=== PATIENT | female | born 1990 | race Caucasian/White ===

== ENCOUNTER 2016-11-01 00:58 | Emergency (ER) | payer OTHER ==
--- NOTE | 2016-11-01 05:18 | ED ORDER SUMMARY ---
..... Patient: CICI ROCHE OrderSheet [facility] VisitID: [id number] [place] [address] 26y, F Registration Date/Time: 11/01/2016 ORDER SHEET Weight: 63.5 kg (stated) Allergies: Sulfa Antibiotics GENERAL ORDERS: CBC w Diff Urgent (02:00 11/01/2016 Dior GUNN) (2:08 TLewis R.N.) CMP Urgent (02:11/01/2016 Dior GUNN) (2:08 TLewis R.N.) UA-Culture if indicated Urgent (02:11/01/2016 Dior GUNN) (2:08 TLewis R.N.) Lipase Urgent (02:11/01/2016 Dior GUNN) (2:08 TLewis R.N.) Urine Urgent (02:11/01/2016 Dior GUNN) (2:08 TLewis R.N.) US Abdomen Limited (Yes) Urgent (03:11/01/2016 Dior GUNN) (Ack 3:31 CHagerty ER Rocket Scientist) (5:10 CHagerty ER Rocket Scientist) MEDICATION ORDERS: IV FLUIDS: Dilaudid IV 0.5 mg (HIGH ALERT MEDICATION, NOW) (02:00 11/01/2016 Dior GUNN) (2:15 DBeyer R.N.) Toradol IV 30 mg (NOW) (02:11/01/2016 Dior GUNN) (2:15 DBeyer R.N.) IV NS : initial bolus 1000 mL (1000 mL/hr), then none - (NOW) (02:11/01/2016 Dior GUNN) (2:28 DBeyer R.N.) Zofran IV 8 mg (NOW) (02:11/01/2016 Dior GUNN) (2:13 DBeyer R.N.) Dilaudid IV 1 mg (HIGH ALERT MEDICATION, NOW) (03:21 11/01/2016 Dior GUNN) (3:30 TLewis R.N.) ORDER SHEET NOTES: [Electronically signed by Dom Guevara R.N. (05:29 11/01/2016)] [Electronically signed by Lindsey Chun MD (15:04 11/06/2016)] [Electronically locked/signed by Dom Guevara R.N. (05:29 11/01/2016)]
--- NOTE | 2016-11-01 05:18 | ED CLINICAL REPORT ---
Clinical Report - Physicians/Mid Levels [facility] [address] [place] [address] 11/01/2016 1:00 Patient: CICI ROCHE Time Seen: 01:46. Arrived- By private vehicle. Historian- patient. HISTORY OF PRESENT ILLNESS Chief Complaint: ABDOMINAL PAIN. At its maximum, severity described as moderate. When seen in the E.D., severity described as moderate. Modifying factors- worsened by deep breaths. Not relieved by anything. It is described as "pain" and burning and it is described as located in the upper abdomen and in the left upper quadrant and radiating to the chest. This started about 2 weeks ago and is still present and now worse. The patient has had nausea. No loss of appetite, vomiting or diarrhea. Similar symptoms previously: None. Recent medical care: Not recently seen/assessed. REVIEW OF SYSTEMS No constipation, black stools, hematemesis, difficulty with urination or pain with urination. No urinary frequency, bloody stools, fever, headache or sore throat. No blurred vision, chest pain, difficulty breathing, cough or joint pain. No skin rash, chills or back pain. Denies current . All systems otherwise negative, except as recorded above. PAST HISTORY Problems: Dysrhythmia. Depression. Additional Surgeries: Cardiac ablation. Medications: Strattera Oral. Zoloft Oral. Allergies: Sulfa Antibiotics. SOCIAL HISTORY Smoker- current status unknown. Alcohol use. No drug use. ADDITIONAL NOTES The nursing notes have been reviewed. PHYSICAL EXAM Vital Signs: 11/01/2016 01:07 BP: 111/67. HR: 85. RR: 12. O2 saturation: 100%. Temp: 97.6 F. Have been reviewed. Appearance: Alert. Oriented X3. No acute distress. (PT appears moderately uncomfortable.). Eyes: Pupils equal, round and reactive to light. Eyes normal inspection. ENT: Nose normal. Neck: Normal inspection. CVS: Normal heart rate and rhythm. Heart sounds normal. Pulses normal. Respiratory: No respiratory distress. Breath sounds normal. Abdomen: Soft. Moderate tenderness in the upper abdomen. No guarding or rebound tenderness. Back: Normal inspection. No CVA tenderness. Skin: Skin warm and dry. Normal skin color. No rash. Normal skin turgor. Extremities: Extremities exhibit normal ROM. No lower extremity edema. Neuro: Oriented X 3. No motor deficit. No sensory deficit. LABS, X-RAYS, AND EKG Abdominal Sonogram: Normal study. The gallbladder is normal. Common duct is normal. Normal liver. Pancreas normal. No free fluid. Study included the gallbladder and upper abdomen. Prior studies were not available for comparison. The study was interpreted by the radiologist and discussed with the radiologist. Laboratory Tests: UA-Culture if indicated: (ANABELL: 11/01/2016 01:22) ( [facility] 11/01/2016 02:11) Final results Test Result Flag Units (Reference) URINE COLOR YELLOW URINE APPEARANCE CLEAR URINE GLUCOSE NEGATIVE (NEGATIVE) URINE BILIRUBIN NEGATIVE (NEGATIVE) URINE KETONE NEGATIVE (NEGATIVE) URINE SPECIFIC GRAVITY 1.015 (1.010-1.030) URINE PH 6.0 (5.0-8.0) URINE PROTEIN NEGATIVE (NEGATIVE) URINE UROBILINOGEN 0.2 EU/dL (0.2-1.0) URINE NITRITE NEGATIVE (NEGATIVE) URINE BLOOD TRACE-INTACT (NEGATIVE) URINE LEUK ESTERASE NEGATIVE (NEGATIVE) URINE RBC 0-1 rbc/hpf (0-1) URINE WBC 0-1 wbc/hpf (0-1) URINE EPITHELIAL CELLS 0-1 EPI/hpf (0-5) URINE BACTERIA NONE SEEN (NONE SEEN) URINE COMMENT CULT NOT INDICATED URINE CULTURES ARE SET-UP BASED ON THE FOLLOWING CRITERIA:POSITIVE NITRITEPOSITIVE LEUKOCYTE ESTERASEGREATER THAN 10 WHITE BLOOD CELLSMODERATE (2+) OR GREATER BACTERIA Urine: (ANABELL: 11/01/2016 01:22) ( [facility] [place] 11/01/2016 02:09) Final results Test Result Flag Units (Reference) URINE NEGATIVE CBC w Diff: (ANABELL: 11/01/2016 01:22) ( [facility] 11/01/2016 02:08) Final results Test Result Flag Units (Reference) WHITE BLOOD COUNT 11.8 H K/uL (4.5-11.5) RED BLOOD COUNT 4.85 M/uL (4.00-5.20) HEMOGLOBIN 15.4 gm/dL (12.0-16.0) HEMATOCRIT 45.3 % (36.0-46.0) MEAN CELL VOLUME 94 fL (80-100) MEAN CORPUSCULAR HGB 32 pg (26-34) MEAN CORPUSCULAR HGB CONC 34 g/dL (31-37) RED CELL DISTRIBUTION WIDTH 12.9 % (11.6-14.8) PLATELET COUNT 222 K/uL (150-400) NEUTROPHIL % 61.1 % (50-75) LYMPH % 29.4 % (25-40) MONO % 7.2 % (3-14) EOSINOPHIL % 2.1 % (0-4) BASOPHIL % 0.2 % (0-2) CMP: (ANABELL: 11/01/2016 01:22) ( [facility] 11/01/2016 02:16) Final results Test Result Flag Units (Reference) GLUCOSE 91 mg/dL (70-110) BUN 17 mg/dL (7-18) CREATININE 0.8 mg/dL (0.6-1.3) Estimated GFR >60 mL/min Estimated GFR- >60 mL/min Note: Persistent reduction over 3 months in eGFR<60 mL/min/1.73 m2 defines CKD. Patients with eGFR values>=60 mL/min/1.73 m2 may also have CKD if evidence ofpersistent proteinuria. Additional information may be foundat www.kidney.org. SODIUM 140 mmol/L (136-145) POTASSIUM 3.9 mmol/L (3.5-5.1) CHLORIDE 103 mmol/L (98-107) CARBON DIOXIDE 33 H mmol/L (21-32) CALCIUM 8.6 mg/dL (8.5-10.1) TOTAL PROTEIN 7.2 g/dL (6.4-8.2) ALBUMIN 4.2 g/dL (3.3-5.0) BILIRUBIN, TOTAL 0.4 mg/dL (0.0-1.0) ALKALINE PHOSPHATASE 59 U/L (46-116) AST (SGOT) 29 U/L (15-37) ALT (SGPT) 36 U/L (12-78) LIPASE 132 U/L (73-393) . Pulse Oximetry: 11/01/2016 01:07 O2 saturation: 100%. (FIO2 - room air). Interpretation: normal. PROGRESS AND PROCEDURES Course of Care: Pt was given IV fluids, Toradol, Dilaudid, and Zofran for symptomatic relief. She was worked up for her pain with labs and an US, and all were unremarkable. I have d/w pt that if her sx don't reynaldo, she may need an endoscopy. At this time, no emergent condition has been identifed. Patient counseled in person regarding the patient's stable condition, test results, diagnosis and need for follow-up. Concerns were addressed. Old medical records reviewed. Disposition: Discharged. Condition: stable and improved. CLINICAL IMPRESSION Acute left upper quadrant abdominal pain of unknown cause. Gastroesophageal reflux disease. INSTRUCTIONS Drink plenty of fluids. (Your labs look good, and your ultrasound shows no gallstones. You most likely either have a virus, or your stomach lining is irritated or even ulcerated.). Warnings: GENERAL WARNINGS: Return or contact your physician immediately if your condition worsens or changes unexpectedly, if not improving as expected, or if other problems arise. Your Current Medications: CONTINUE TAKING THE FOLLOWING MEDICATIONS: Strattera Oral. Zoloft Oral. Prescription Medications: Hydrocodone/APAP 5mg / 325mg: take 1-2 orally every 6 hours as needed for pain. Dispense twelve (12). No refill. Prilosec 20 mg capsules: take 1 capsule orally every day. Dispense thirty (30). No refill. Substitution is permissible. Follow-up: Follow up with your doctor. Call for the next available appointment. Reason for referral: Follow up ER visit for abdominal pain, discuss endoscopy. Understanding of the discharge instructions verbalized by patient. (Electronically signed by Lindsey Chun MD 11/06/2016 15:04)
--- NOTE | 2016-11-01 05:18 | ED NURSING NOTES ---
Clinical Report - Nurses [facility] [address] [place] [address] 11/01/2016 1:00 Patient: CICI ROCHE TRIAGE Triage time 01:10. Acuity: LEVEL 3. Chief Complaint: ABDOMINAL PAIN and NAUSEA. --01:18 Dom Guevara R.N. 01:07 11/01/16. BP: 111/67. HR: 85. RR: 12. O2 saturation: 100%. Temp: 97.6 F. Pain level now 08/03. --01:18 Dom Guevara R.N. Weight: 63.5 kg stated. Height/Length: 62 inches Per Patient. BMI: 25.6. --01:16 Dom Guevara R.N. Medications Strattera Oral. Zoloft Oral. --01:13 Dom Guevara R.N. Medication/allergy information source: the patient. --01:18 Dom Guevara R.N. Allergies Sulfa Antibiotics. --01:13 Dom Guevara R.N. History Arrived by private vehicle. Historian: patient. Accompanied by family. Onset. (2 weeks ago). ( right sided flank pain with nausea, but no vomiting. abdominal pain for the last couple of weeks. pt denies any pain on urination. pt is having spotting, but no discharge.). She has had nausea and abdominal pain. 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 PAST MEDICAL HX: Immunizations: up-to-date. Denies current : Pt has an IUD since 2013. SOCIAL HX: Current every day heavy tobacco smoker (cigarette)- less than 1 pack per day. Occasional alcohol use; consumes wine by the glass. No drug use. --01:18 Dom Guevara R.N. PROBLEMS: Cardiac Procedures. Ablations . Depression. --01:17 Dom Guevara R.N. Interventions ID band on patient. To treatment room. --01:18 Dom Guevara R.N. PHYSICAL ASSESSMENT ( last bm was today, brown and formed, per pt.). --01:18 Dom Guevara R.N. GENERAL / NEURO / PSYCH: Alert. Oriented X 4. Appears in no acute distress. HEENT: Mucous membranes are pink. RESPIRATORY: Respirations not labored. Breath sounds within normal limits. CVS: Normal sinus rhythm noted. Capillary refill less than 2 seconds. GI / : The patient has had nausea. Abdomen soft and nontender. Bowel sounds within normal limits. Normal genitalia. Stool color normal. SKIN: Skin is warm and dry. --01:20 Dom Guevara R.N. NURSING PROGRESS NOTES 01:21 11/01/2016 Site #1 started via IV in the left antecubital space with an 20g angiocath, with aseptic technique and good blood return; one attempt. Blood drawn: rainbow set. Labeled in the presence of the patient. Saline lock flushed with 10 mL saline. --:21 Dom Guevara R.N. Patient gowned. Two patient identifiers checked. Call light placed in reach. Side rails up x 1. Bed placed in lowest position. Brakes of bed on. --:21 Dom Guevara R.N. 02:13 11/01/2016 Zofran (Ondansetron HCl) IVP 8 mg given over 3 minute(s) via site #1. Allergies verified and confirmed 5 rights. IV patency established. IV site checked: no pain, redness, or swelling. IV flushed thoroughly pre- and post-medication administration. IVP given by RN. --02:13 Dawit Villavicencio R.N. 02:14 11/01/2016 Toradol IVP 30 mg given over 2 minute(s) via site #1. Allergies verified and confirmed 5 rights. IV patency established. IV site checked: no pain, redness, or swelling. IV flushed thoroughly pre- and post-medication administration. IVP given by RN. --02:15 Dawit Villavicencio R.N. 02:15 11/01/2016 Dilaudid (HYDROmorphone HCl PF) IVP 0.5 mg given over 2 minute(s) via site #1. Allergies verified, confirmed 5 rights and sedative warning given. IV patency established. IV site checked: no pain, redness, or swelling. IV flushed thoroughly pre- and post-medication administration. IVP given by RN. --02:15 Dawit Villavicencio R.N. 02:17 11/01/2016 Started bag #1 1000 mL IV Fluids IV NS (Saline); bolus of 1000 mL wide open via site #1. Allergies verified and confirmed 5 rights. IV patency established. IV site checked: no pain, redness, or swelling. IV flushed thoroughly pre- and post-medication administration. --02:28 Dawit Villavicencio R.N. 03:30 11/01/2016 Dilaudid (HYDROmorphone HCl PF) IVP 1 mg given over 1 minute(s) via site #1. Allergies verified, confirmed 5 rights and sedative warning given to the patient and patient's hydraulic press tender. IV patency established. IV site checked: no pain, redness, or swelling. IV flushed thoroughly pre- and post-medication administration. IVP given by RN. --03:30 Dom Guevara R.N. 03:30 11/01/16. BP: 95/49. HR: 90. RR: 14. O2 saturation: 100%. Pain level now 8/10. --03:31 Dom Guevara R.N. 04:32 field sampling technician with patient for exam. --04:33 Marino Akers R.N. ( Ultrasound is complete). --04:49 Dom Guevara R.N. DISPOSITION / DISCHARGE 05:27 11/01/2016 Site #1 removed upon discharge. Catheter intact. Bandage applied. --05:27 Dom Guevara R.N. Departure time: 05:28. Condition at departure: improved. No learning barriers present. Discharge instructions provided and reviewed with the patient. Reviewed warnings. Reviewed medication(s). Treatments reviewed. Patient verbalized understanding. Written instructions provided in Mosotho. The patient was discharged by the physician. She was discharged home and accompanied by hydraulic press tender. She left the Emergency Department ambulatory and via private vehicle. Back Tender Paper Machine driving. --05:28 Dom Guevara R.N. 05:20 11/01/16. BP: 96/50. HR: 70. RR: 18. O2 saturation: 99%. Pain level now 0/10. --05:28 Dom Guevara R.N. Locked/Released at 11/01/2016 5:29 by Dom Guevara R.N.
--- NOTE | 2016-11-01 05:18 | ED NURSING NOTES ---
Clinical Report - Nurses [facility] [address] [place] [address] 11/01/2016 1:00 Patient: CICI ROCHE TRIAGE Triage time 01:10. Acuity: LEVEL 3. Chief Complaint: ABDOMINAL PAIN and NAUSEA. --01:18 Dom Guevara R.N. 01:07 11/01/16. BP: 111/67. HR: 85. RR: 12. O2 saturation: 100%. Temp: 97.6 F. Pain level now 08/03. --01:18 Dom Guevara R.N. Weight: 63.5 kg stated. Height/Length: 62 inches Per Patient. BMI: 25.6. --01:16 Dom Guevara R.N. Medications Strattera Oral. Zoloft Oral. --01:13 Dom Guevara R.N. Medication/allergy information source: the patient. --01:18 Dom Guevara R.N. Allergies Sulfa Antibiotics. --01:13 Dom Guevara R.N. History Arrived by private vehicle. Historian: patient. Accompanied by family. Onset. (2 weeks ago). ( right sided flank pain with nausea, but no vomiting. abdominal pain for the last couple of weeks. pt denies any pain on urination. pt is having spotting, but no discharge.). She has had nausea and abdominal pain. 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 PAST MEDICAL HX: Immunizations: up-to-date. Denies current : Pt has an IUD since 2013. SOCIAL HX: Current every day heavy tobacco smoker (cigarette)- less than 1 pack per day. Occasional alcohol use; consumes wine by the glass. No drug use. --01:18 Dom Guevara R.N. PROBLEMS: Cardiac Procedures. Ablations . Depression. --01:17 Dom Guevara R.N. Interventions ID band on patient. To treatment room. --01:18 Dom Guevara R.N. PHYSICAL ASSESSMENT ( last bm was today, brown and formed, per pt.). --01:18 Dom Guevara R.N. GENERAL / NEURO / PSYCH: Alert. Oriented X 4. Appears in no acute distress. HEENT: Mucous membranes are pink. RESPIRATORY: Respirations not labored. Breath sounds within normal limits. CVS: Normal sinus rhythm noted. Capillary refill less than 2 seconds. GI / : The patient has had nausea. Abdomen soft and nontender. Bowel sounds within normal limits. Normal genitalia. Stool color normal. SKIN: Skin is warm and dry. --01:20 Dom Guevara R.N. NURSING PROGRESS NOTES 01:21 11/01/2016 Site #1 started via IV in the left antecubital space with an 20g angiocath, with aseptic technique and good blood return; one attempt. Blood drawn: rainbow set. Labeled in the presence of the patient. Saline lock flushed with 10 mL saline. --:21 Dom Guevara R.N. Patient gowned. Two patient identifiers checked. Call light placed in reach. Side rails up x 1. Bed placed in lowest position. Brakes of bed on. --:21 Dom Guevara R.N. 02:13 11/01/2016 Zofran (Ondansetron HCl) IVP 8 mg given over 3 minute(s) via site #1. Allergies verified and confirmed 5 rights. IV patency established. IV site checked: no pain, redness, or swelling. IV flushed thoroughly pre- and post-medication administration. IVP given by RN. --02:13 Dawit Villavicencio R.N. 02:14 11/01/2016 Toradol IVP 30 mg given over 2 minute(s) via site #1. Allergies verified and confirmed 5 rights. IV patency established. IV site checked: no pain, redness, or swelling. IV flushed thoroughly pre- and post-medication administration. IVP given by RN. --02:15 Dawit Villavicencio R.N. 02:15 11/01/2016 Dilaudid (HYDROmorphone HCl PF) IVP 0.5 mg given over 2 minute(s) via site #1. Allergies verified, confirmed 5 rights and sedative warning given. IV patency established. IV site checked: no pain, redness, or swelling. IV flushed thoroughly pre- and post-medication administration. IVP given by RN. --02:15 Dawit Villavicencio R.N. 02:17 11/01/2016 Started bag #1 1000 mL IV Fluids IV NS (Saline); bolus of 1000 mL wide open via site #1. Allergies verified and confirmed 5 rights. IV patency established. IV site checked: no pain, redness, or swelling. IV flushed thoroughly pre- and post-medication administration. --02:28 Dawit Villavicencio R.N. 03:30 11/01/2016 Dilaudid (HYDROmorphone HCl PF) IVP 1 mg given over 1 minute(s) via site #1. Allergies verified, confirmed 5 rights and sedative warning given to the patient and patient's embroiderer. IV patency established. IV site checked: no pain, redness, or swelling. IV flushed thoroughly pre- and post-medication administration. IVP given by RN. --03:30 Dom Guevara R.N. 03:30 11/01/16. BP: 95/49. HR: 90. RR: 14. O2 saturation: 100%. Pain level now 8/10. --03:31 Dom Guevara R.N. 04:32 computer technical support specialist with patient for exam. --04:33 Marino Akers R.N. ( Ultrasound is complete). --04:49 Dom Guevara R.N. DISPOSITION / DISCHARGE 05:27 11/01/2016 Site #1 removed upon discharge. Catheter intact. Bandage applied. --05:27 Dom Guevara R.N. Departure time: 05:28. Condition at departure: improved. No learning barriers present. Discharge instructions provided and reviewed with the patient. Reviewed warnings. Reviewed medication(s). Treatments reviewed. Patient verbalized understanding. Written instructions provided in Serbian. The patient was discharged by the physician. She was discharged home and accompanied by embroiderer. She left the Emergency Department ambulatory and via private vehicle. Dealer Compliance Representative driving. --05:28 Dom Guevara R.N. 05:20 11/01/16. BP: 96/50. HR: 70. RR: 18. O2 saturation: 99%. Pain level now 0/10. --05:28 Dom Guevara R.N. Locked/Released at 11/01/2016 5:29 by Dom Guevara R.N.
--- NOTE | 2016-11-01 05:18 | ED ORDER SUMMARY ---
..... Patient: CICI ROCHE OrderSheet [facility] VisitID: [id number] [place] [address] 26y, F Registration Date/Time: 11/01/2016 ORDER SHEET Weight: 63.5 kg (stated) Allergies: Sulfa Antibiotics GENERAL ORDERS: CBC w Diff Urgent (02:00 11/01/2016 Dior GUNN) (2:08 TLewis R.N.) CMP Urgent (02:11/01/2016 Dior GUNN) (2:08 TLewis R.N.) UA-Culture if indicated Urgent (02:11/01/2016 Dior GUNN) (2:08 TLewis R.N.) Lipase Urgent (02:11/01/2016 Dior GUNN) (2:08 TLewis R.N.) Urine Urgent (02:11/01/2016 Dior GUNN) (2:08 TLewis R.N.) US Abdomen Limited (Yes) Urgent (03:11/01/2016 Dior GUNN) (Ack 3:31 CHagerty ER Solution Consultant) (5:10 CHagerty ER Solution Consultant) MEDICATION ORDERS: IV FLUIDS: Dilaudid IV 0.5 mg (HIGH ALERT MEDICATION, NOW) (02:00 11/01/2016 Dior GUNN) (2:15 DBeyer R.N.) Toradol IV 30 mg (NOW) (02:11/01/2016 Dior GUNN) (2:15 DBeyer R.N.) IV NS : initial bolus 1000 mL (1000 mL/hr), then none - (NOW) (02:11/01/2016 Dior GUNN) (2:28 DBeyer R.N.) Zofran IV 8 mg (NOW) (02:11/01/2016 Dior GUNN) (2:13 DBeyer R.N.) Dilaudid IV 1 mg (HIGH ALERT MEDICATION, NOW) (03:21 11/01/2016 Dior GUNN) (3:30 TLewis R.N.) ORDER SHEET NOTES: [Electronically signed by Dom Guevara R.N. (05:29 11/01/2016)] [Electronically signed by Lindsey Chun MD (15:04 11/06/2016)] [Electronically locked/signed by Dom Guevara R.N. (05:29 11/01/2016)]
--- NOTE | 2016-11-01 06:17 | DIAGNOSTIC IMAGING REPORT ---
PROCEDURE: US ABDOMEN ULTRASOUND-LIMITED INDICATION: Epigastric pain. TECHNIQUE: Prescott scale and color Doppler sonographic images of the abdomen were obtained. COMPARISON: None. FINDINGS: Gallbladder is normal. No evidence of gallstones. Common duct is normal (4 mm). Portions of the liver, pancreas, and right kidney are seen, and are normal. IMPRESSION: 1. Negative ultrasound of the gallbladder and right upper quadrant.
--- NOTE | 2016-11-06 15:05 | ED MED RECONCILIATION SUMMARY ---
Patient: CICI ROCHE Medication Reconciliation Report [facility] VisitID: [id number] [address] [place] [address] 26y, F Registration Date/Time: 11/01/2016 Weight: 63.5 kg Height/Length: 62 in. BMI: 25.6 ALLERGIES: Sulfa Antibiotics The patient's Home Medications are listed below: CONTINUE TAKING THE FOLLOWING MEDICATIONS: Strattera Oral Zoloft Oral The source(s) of the original Home Medication information: patient The following Medications were given to the patient in the Emergency Department: Zofran [IVP] IVP 8 mg, administered: 11/01/2016 2:13:00 AM Toradol [IVP] IVP 30 mg, administered: 11/01/2016 2:14:00 AM Dilaudid [IVP] IVP 0.5 mg, administered: 11/01/2016 2:15:00 AM IV NS IV Fluids bolus 1000 mL wide open, administered: 11/01/2016 2:17:00 AM Dilaudid [IVP] IVP 1 mg, administered: 11/01/2016 3:30:00 AM The following Medications were prescribed to the patient: Hydrocodone/APAP 5mg / 325mg: take 1-2 orally every 6 hours as needed for pain. Dispense twelve (12). No refill. -- Lindsey Chun MD Prilosec 20 mg capsules: take 1 capsule orally every day. Dispense thirty (30). No refill. Substitution is permissible. -- Lindsey Chun MD
--- NOTE | 2016-11-06 15:05 | ED MAR SUMMARY ---
..... Medication Administration Record [facility] [address] [place] [address] Patient: CICI ROCHE Visit ID: [id number] 26y, F Weight: 63.5 kg Height/Length: 62 in BMI: 25.6 ALLERGIES: Sulfa Antibiotics Given 02:13 11/01/2016 Dawit Villavicencio R.N. Medication Administered: ZOFRAN [IVP] (ONDANSETRON HCL), Dose: 8 mg IVP over 3 minute(s), Site: #1 left AC. Medication Ordered: Zofran IV 8 mg (NOW). Given 02:14 11/01/2016 Dawit Villavicencio R.N. Medication Administered: TORADOL [IVP], Dose: 30 mg IVP over 2 minute(s), Site: #1 left AC. Medication Ordered: Toradol IV 30 mg (NOW). Given 02:15 11/01/2016 Dawit Villavicencio R.N. Medication Administered: DILAUDID [IVP] (HYDROMORPHONE HCL PF), Dose: 0.5 mg IVP over 2 minute(s), Site: #1 left AC. Medication Ordered: Dilaudid IV 0.5 mg (HIGH ALERT MEDICATION, NOW). Start 02:17 11/01/2016 Dawit Villavicencio R.N. Medication Administered: IV NS (SALINE), Dose: IV Fluids, Bolus: 1000 mL wide open, Dispensed: 1000 mL bag, Site: #1 left AC. Medication Ordered: IV NS : initial bolus 1000 mL (1000 mL/hr), then none - (NOW). Given 03:30 11/01/2016 Dom Guevara R.N. Medication Administered: DILAUDID [IVP] (HYDROMORPHONE HCL PF), Dose: 1 mg IVP over 1 minute(s), Site: #1 left AC. Medication Ordered: Dilaudid IV 1 mg (HIGH ALERT MEDICATION, NOW).
--- NOTE | 2016-11-06 15:05 | ED MED RECONCILIATION SUMMARY ---
Patient: CICI ROCHE Medication Reconciliation Report [facility] VisitID: [id number] [address] [place] [address] 26y, F Registration Date/Time: 11/01/2016 Weight: 63.5 kg Height/Length: 62 in. BMI: 25.6 ALLERGIES: Sulfa Antibiotics The patient's Home Medications are listed below: CONTINUE TAKING THE FOLLOWING MEDICATIONS: Strattera Oral Zoloft Oral The source(s) of the original Home Medication information: patient The following Medications were given to the patient in the Emergency Department: Zofran [IVP] IVP 8 mg, administered: 11/01/2016 2:13:00 AM Toradol [IVP] IVP 30 mg, administered: 11/01/2016 2:14:00 AM Dilaudid [IVP] IVP 0.5 mg, administered: 11/01/2016 2:15:00 AM IV NS IV Fluids bolus 1000 mL wide open, administered: 11/01/2016 2:17:00 AM Dilaudid [IVP] IVP 1 mg, administered: 11/01/2016 3:30:00 AM The following Medications were prescribed to the patient: Hydrocodone/APAP 5mg / 325mg: take 1-2 orally every 6 hours as needed for pain. Dispense twelve (12). No refill. -- Lindsey Chun MD Prilosec 20 mg capsules: take 1 capsule orally every day. Dispense thirty (30). No refill. Substitution is permissible. -- Lindsey Chun MD
--- NOTE | 2016-11-06 15:05 | ED DISCHARGE INSTRUCTIONS ---
Patient: CICI ROCHE General Instructions [facility] VisitID: [id number] [place] [address] 26y, F Registration Date/Time: 11/01/2016 Acute left upper quadrant abdominal pain of unknown cause. Gastroesophageal reflux disease. INSTRUCTIONS Drink plenty of fluids. (Your labs look good, and your ultrasound shows no gallstones. You most likely either have a virus, or your stomach lining is irritated or even ulcerated.). Warnings: GENERAL WARNINGS: Return or contact your physician immediately if your condition worsens or changes unexpectedly, if not improving as expected, or if other problems arise. Your Current Medications: CONTINUE TAKING THE FOLLOWING MEDICATIONS: Strattera Oral. Zoloft Oral. Prescription Medications: Hydrocodone/APAP 5mg / 325mg: take 1-2 orally every 6 hours as needed for pain. Dispense twelve (12). No refill. Prilosec 20 mg capsules: take 1 capsule orally every day. Dispense thirty (30). No refill. Substitution is permissible. Follow-up: Follow up with your doctor. Call for the next available appointment. Reason for referral: Follow up ER visit for abdominal pain, discuss endoscopy. Understanding of the discharge instructions verbalized by patient. ADDITIONAL INFORMATION Abdominal Pain, Unknown Cause (Female) The exact cause of your abdominal (stomach) pain is not certain. This does not mean that this is something to worry about, or the right tests were not done. Everyone likes to know the exact cause of the problem, but sometimes with abdominal pain, there is no clear-cut cause, and this could be a good thing. The good news is that your symptoms can be treated, and you will feel better. Your condition does not seem serious now; however, sometimes the signs of a serious problem may take more time to appear. For this reason,it is important for you to watch for any new symptoms, problems,or worsening of your condition. Over the next few days, the abdominal pain may come and go, or be continuous. Other common symptoms can include nausea and vomiting. Sometimes it can be difficult to tell if you feel nauseous, you may just feel bad and not associate that feeling with nausea. Constipation, diarrhea, and a fever may go along with the pain. The pain may continue even if treated correctly over the following days. Depending on how things go, sometimes the cause can become clear and may require further or different treatment. Additional evaluations, medications, or tests may be needed. Home care Your health care provider may prescribe medications for pain, symptoms, or an infection. Follow the health care provider's instructions for taking these medications. General care Rest until your next exam. No strenuous activities. Try to find positions that ease discomfort. A small pillow placed on the abdomen may help relieve pain. Something warm on your abdomen (such as a heating pad) may help, but be careful not to burn yourself. Diet Do not force yourself to eat, especially if having cramps, vomiting, or diarrhea. Water is important so you do not get dehydrated. Soup may also be good. Sports drinks may also help, especially if they are not too acidic. Make sure you don't drink sugary drinks as this can make things worse. Take liquids in small amounts. Do not guzzle them. Caffeine sometimes makes the pain and cramping worse. Avoid dairy products if you have vomiting or diarrhea. Don't eat large amounts at a time. Wait a few minutes between bites. Eat a diet low in fiber (called a low-residue diet). Foods allowed include refined breads, white rice, fruit and vegetable juices without pulp, tender meats. These foods will pass more easily through the intestine. Avoid whole-grain foods, whole fruits and vegetables, meats, seeds and nuts, fried or fatty foods, dairy, alcohol and spicy foods until your symptoms go away. Follow-up care Follow up with your health care provider as instructed, or if your pain does not begin to improve in the next 24 hours. When to seek medical care Seek prompt medical care if any of the following occur: Pain gets worse or moves to the right lower abdomen New or worsening vomiting or diarrhea Swelling of the abdomen Unable to pass stool for more than three days Fever of 100.4F (38C) or higher, or as directed by your healthcare provider. Blood in vomit or bowel movements (dark red or black color) Jaundice (yellow color of eyes and skin) Weakness, dizziness Chest, arm, back, neck or jaw pain Unexpected vaginal bleeding or missed period Call 911 Call emergency services if any of the following occur: Trouble breathing Confusion Fainting or loss of consciousness Rapid heart rate Seizure GERD (Adult) The esophagus is a tube that carries food from the mouth to the stomach. A valve at the lower end of the esophagus prevents stomach acid from flowing upward. If this valve does not work properly, acid from the stomach enters the esophagus. If this occurs over and over, the acid will injure the lining of the esophagus. This condition is called GERD (gastroesophageal reflux disease) or acid reflux. When stomach acid flows upward into the esophagus, it causes burning, pressure or sharp pain in the upper abdomen or mid to lower chest. The pain can spread to the neck, back, or shoulder, similar to heart pain (angina). There may be belching, an acid taste in the back of the throat, chronic cough, or sore throat or hoarseness. GERD symptoms often occur during the day after a big meal, but it can also occur at night when lying down. Smoking,as well as drinking alcohol, increases the risk of GERD. GERD is a chronic condition. Once it begins, it is often lifelong. Treatment includes changes in eating habits and the use of acid lazaro medications to decrease the amount of acid in the stomach. Symptoms often improve with treatment, but if treatment is stopped, the symptoms usually return after a few months. So most persons with GERD will need to continue treatment. Home Care: Take the prescribed acid lazaro medication for the full course of treatment even if you begin to feel better sooner. This medication can take up to several days to fully control your symptoms. If you cant afford the prescribed medication, you can try [id number] acid blockers, such as Pepcid AC, Tagamet, Zantac, or Aciphex. If these do not relieve your symptoms, a stronger acid-lazaro can be tried, such as Prilosec OTC. You can use antacids, such as Tums, Rolaids, Mylanta, or Maalox, for pain. This will be useful the first few days after starting acid blockers when the blockers havent started working yet. Follow the directions on the label. Liquid antacids may work better than tablets. Note that antacids can interfere with absorption of certain medications. Specifically, do not take Tagamet (cimetidine), Zantac (ranitidine), or Carafate (sucralfate) within 1 hour of taking an antacid. Talk with your pharmacist if you have any questions. Limit or avoid fatty, fried, and spicy foods, as well as coffee, chocolate, mint, and foods with high acid content such as tomatoes and citrus fruit and juices (orange, grapefruit, lemon). Avoid alcohol and smoking. Dont eat large meals, especially at night. Frequent, smaller meals are best. Do not lie down right after eating. And dont eat anything 3 hours before going to bed. If you are overweight, losing weight will reduce symptoms. Women should not wear corsets or girdles because this increases pressure on the stomach and worsens reflux. If your symptoms occur during sleep, use a foam wedge to elevate your upper body (not just your head.) Or, place 4" blocks under the head of your bed. Follow Up with your doctor or as advised by our staff. Further testing may be needed. If you do not begin to improve over the next 4 days, contact your doctor. If you had an x-ray, CT scan, or ECG (electrocardiogram), it will be reviewed by a specialist. Youll be notified of any new findings that affect your care. Get Prompt Medical Attention if any of the following occur: Stomach pain gets worse or moves to the lower right abdomen (appendix area) Chest pain appears or gets worse, or spreads to the back, neck, shoulder, or arm Frequent vomiting (cant keep down liquids) Blood in the stool or vomit (red or black in color) Feeling weak or dizzy, fainting, or trouble breathing Fever of 100.4F (38C) or higher, or as directed by your healthcare provider You have been given the following additional information: Abdominal Pain, Unknown Cause, (Female) GERD (Adult) (Electronically signed by Lindsey Chun MD 11/06/2016 15:04)
--- NOTE | 2016-11-06 15:05 | ED MAR SUMMARY ---
..... Medication Administration Record [facility] [address] [place] [address] Patient: CICI ROCHE Visit ID: [id number] 26y, F Weight: 63.5 kg Height/Length: 62 in BMI: 25.6 ALLERGIES: Sulfa Antibiotics Given 02:13 11/01/2016 Dawit Villavicencio R.N. Medication Administered: ZOFRAN [IVP] (ONDANSETRON HCL), Dose: 8 mg IVP over 3 minute(s), Site: #1 left AC. Medication Ordered: Zofran IV 8 mg (NOW). Given 02:14 11/01/2016 Dawit Villavicencio R.N. Medication Administered: TORADOL [IVP], Dose: 30 mg IVP over 2 minute(s), Site: #1 left AC. Medication Ordered: Toradol IV 30 mg (NOW). Given 02:15 11/01/2016 Dawit Villavicencio R.N. Medication Administered: DILAUDID [IVP] (HYDROMORPHONE HCL PF), Dose: 0.5 mg IVP over 2 minute(s), Site: #1 left AC. Medication Ordered: Dilaudid IV 0.5 mg (HIGH ALERT MEDICATION, NOW). Start 02:17 11/01/2016 Dawit Villavicencio R.N. Medication Administered: IV NS (SALINE), Dose: IV Fluids, Bolus: 1000 mL wide open, Dispensed: 1000 mL bag, Site: #1 left AC. Medication Ordered: IV NS : initial bolus 1000 mL (1000 mL/hr), then none - (NOW). Given 03:30 11/01/2016 Dom Guevara R.N. Medication Administered: DILAUDID [IVP] (HYDROMORPHONE HCL PF), Dose: 1 mg IVP over 1 minute(s), Site: #1 left AC. Medication Ordered: Dilaudid IV 1 mg (HIGH ALERT MEDICATION, NOW).
== END 2016-11-01 05:28 | disposition home or self-care (01) ==
LOC: ED SRH 00:58
DX: K21.9 Gastro-esophageal reflux disease without esophagitis (principal); R10.12 Left upper quadrant pain; F17.210 Nicotine dependence, cigarettes, uncomplicated; Z88.2 Allergy status to sulfonamides
CPT/HCPCS: 90004; 90100; 92235; 93070; 95059